=== PATIENT | male | born 1970 | race Caucasian/White ===

== ENCOUNTER 2016-12-23 08:51 | Emergency (ER) | payer OTHER, SELFPAY ==
--- NOTE | 2016-12-23 09:23 | C.PDOC ---
History Of Present Illness 46 y/o male presents to the ED with complaints of pain to left knee since 0700 this morning. Pt states he hit his knee against a table, pain is 9/10, nonradiating. Pt able to bear weight. He is concerned because pain is similar to previous right knee injury last year. Pt denies fever, chills, weakness, numbness or any other complaints. Time Seen by Provider: 12/23/16 09:05 Chief Complaint (Nursing): Lower Extremity Problem/Injury History Per: Patient History/Exam Limitations: no limitations Onset/Duration Of Symptoms: Hrs Current Symptoms Are (Timing): Still Present Severity: Severe Pain Scale Rating Of: 9 Recent travel outside of the [place]: No - Knee Description Of Injury: Struck Against Object Past Medical History Reviewed: Historical Data, Nursing Documentation, Vital Signs Vital Signs: Last Vital Signs Temp 97.9 F 12/23/16 09:14 Pulse 61 12/23/16 09:14 Resp 20 12/23/16 09:14 BP 113/71 12/23/16 09:14 Pulse Ox 95 12/23/16 09:14 Family History: States: Unknown Family Hx - Social History Hx Tobacco Use: No Hx Alcohol Use: No Hx Substance Use: No - Immunization History Hx Tetanus Toxoid Vaccination: No Hx Influenza Vaccination: No Hx Pneumococcal Vaccination: No Review Of Systems Except As Marked, All Systems Reviewed And Found Negative. Constitutional: Negative for: Fever, Chills Musculoskeletal: Positive for: Other (left knee pain) Neurological: Negative for: Weakness, Numbness Physical Exam - Physical Exam Appears: Non-toxic, No Acute Distress Skin: Warm, Dry, No Rash Extremity: Normal ROM, Capillary Refill (<2 seconds), No Deformity, Other (left knee slightly warm to touch, small bruise to anterior patella, mild swelling; no laxity or ballottment) Pulses: Left Dorsalis Pedis: Normal Neurological/Psych: Oriented x3, Normal Speech, Normal Motor, Normal Sensation ED Course And Treatment Progress Note: Plan: XR left knee, pain medication, ice Disposition Counseled Patient/Family Regarding: Studies Performed, Diagnosis, Need For Followup, Rx Given - Disposition Referrals: [facility] [Outside] Disposition: HOME/ ROUTINE Disposition Time: 10:47 Condition: STABLE Prescriptions: Naproxen [Naprosyn] 1 tab PO BID PRN #25 tab PRN Reason: Pain Instructions: Contusion in Adults (DC) Forms: Gen Discharge Inst Tuvaluan - Clinical Impression Clinical Impression: Knee contusion - Scribe Statement The provider has reviewed the documentation as recorded by the Scribe Aamir Pollard Provider Attestation: All medical record entries made by the Scribe were at my direction and personally dictated by me. I have reviewed the chart and agree that the record accurately reflects my personal performance of the history, physical exam, medical decision making, and the department course for this patient. I have also personally directed, reviewed, and agree with the discharge instructions and disposition.
[2016-12-23 09:24] VITALS: TEMP 97.9
[2016-12-23 11:03] VITALS: BP 117/68; PULSE 62; RESP 14; O2SAT 96
--- NOTE | 2016-12-23 11:56 | RAD ---
PROCEDURE: Left Knee Radiographs. HISTORY: Pain. COMPARISON: None. FINDINGS: BONES: Normal. No fracture. JOINTS: Normal. No osteoarthritis. JOINT EFFUSION: None. OTHER FINDINGS: None. IMPRESSION: Normal radiographs of the left knee.
== END 2016-12-23 11:03 | disposition home or self-care (01) ==
LOC: C.ER 08:51
DX: S80.02XA Contusion of left knee, initial encounter (principal); W22.03XA Walked into furniture, initial encounter

== ENCOUNTER 2017-01-13 12:30 | Emergency (ER) | payer OTHER ==
[2017-01-13 12:38] VITALS: BP 109/70; PULSE 66; RESP 18; TEMP 98.6; O2SAT 99; BMI 30.2
--- NOTE | 2017-01-13 12:45 | C.PDOC ---
History Of Present Illness Patient is a 46 y/o M with hx of knee pain, presenting requesting MRI. Patient was seen in the ED on 12/23 after he hit his knee against a table. He was referred to follow-up with [facility] after he had negative xrays. He reports that he has been unable to follow-up so presented to ED today for MRI. He denies new trauma. Time Seen by Provider: 01/13/17 12:44 Chief Complaint (Nursing): Lower Extremity Problem/Injury Past Medical History Vital Signs: Last Vital Signs Temp 98.6 F 01/13/17 12:38 Pulse 66 01/13/17 12:38 Resp 18 01/13/17 12:38 BP 109/70 01/13/17 12:38 Pulse Ox 99 01/13/17 12:55 Family History: States: Unknown Family Hx - Social History Hx Tobacco Use: No Hx Alcohol Use: No Hx Substance Use: No - Immunization History Hx Tetanus Toxoid Vaccination: No Hx Influenza Vaccination: No Hx Pneumococcal Vaccination: No Review Of Systems Constitutional: Negative for: Fever, Chills Cardiovascular: Negative for: Chest Pain Respiratory: Negative for: Shortness of Breath Gastrointestinal: Negative for: Vomiting, Abdominal Pain, Diarrhea Genitourinary: Negative for: Dysuria Musculoskeletal: Positive for: Other (knee pain) Skin: Negative for: Rash Neurological: Negative for: Weakness, Numbness Physical Exam - Physical Exam Appears: Well, Non-toxic, No Acute Distress Skin: Normal Color, Warm, Dry Head: Atraumatic, Normacephalic Eye(s): bilateral: Normal Inspection, PERRL, EOMI Extremity: Normal ROM, No Tenderness, No Pedal Edema, No Calf Tenderness, No Deformity, No Swelling, Other (normal ROM at L knee. Ambulates with steady gait) ED Course And Treatment O2 Sat by Pulse Oximetry: 99 Medical Decision Making Medical Decision Making: Patient requesting MRI L knee for evaluation of injury from 12/24. Called clinic and they report that they will evaluate patient today and refer him to orthopedics and/or get further imaging as needed. Disposition - Disposition Disposition: HOME/ ROUTINE Disposition Time: 12:55 Condition: GOOD Additional Instructions: You have had negative knee xray. You need to follow-up with clinic for further evaluation. Go directly to clinic now to make appt. Instructions: Knee Pain (ED) Print Language: KHMER - Clinical Impression Clinical Impression: Knee pain, left
== END 2017-01-13 13:04 | disposition home or self-care (01) ==
LOC: C.ER 12:30
DX: M25.562 Pain in left knee (principal)

== ENCOUNTER 2018-04-23 17:32 | Emergency (ER) | payer OTHER ==
[2018-04-23 17:32] VITALS: BMI 30.6
[2018-04-23 17:51] VITALS: BP 91/60; PULSE 69; RESP 18; TEMP 98.2; O2SAT 96
--- NOTE | 2018-04-23 18:27 | C.PDOC ---
History Of Present Illness 47 y/o male presents to the ER for evaluation of left sided facial swelling which has gradually developed since the morning. Patient reports associated left upper toothache and left earache for past few days. Patient denies known trauma, injury, recent illness, fever, chills, headache, dizziness, ear discharge, drooling, dysphagia, dyspnea, trismus, recent dental work, neck pain, cough, CP, denies any other active complaints. Ambulate to Ed for evaluation, not in any apparent distress. Time Seen by Provider: 04/23/18 18:09 Chief Complaint (Nursing): Abnormal Skin Integrity History Per: Patient History/Exam Limitations: no limitations Onset/Duration Of Symptoms: Hrs Current Symptoms Are (Timing): Still Present Severity: Moderate Past Medical History Reviewed: Historical Data, Nursing Documentation, Vital Signs Vital Signs: Last Vital Signs Temp 98.2 F 04/23/18 17:48 Pulse 69 04/23/18 17:48 Resp 18 04/23/18 17:48 BP 91/60 L 04/23/18 17:48 Pulse Ox 96 04/23/18 17:48 - Medical History PMH: No Chronic Diseases Surgical History: No Surg Hx Family History: States: No Known Family Hx - Social History Hx Tobacco Use: No Hx Alcohol Use: No Hx Substance Use: No - Immunization History Hx Tetanus Toxoid Vaccination: No Hx Influenza Vaccination: No Hx Pneumococcal Vaccination: No Review Of Systems Except As Marked, All Systems Reviewed And Found Negative. Constitutional: Positive for: Other (left-sided facial swelling). Negative for: Fever, Chills ENT: Positive for: Ear Pain (left ear), Mouth Pain Physical Exam - Physical Exam Appears: Well, Non-toxic, No Acute Distress Skin: Normal Color, Warm, Dry, No Rash, No Ecchymosis Head: Normacephalic Eye(s): bilateral: PERRL Ear(s): Bilateral: Normal Nose: No Flaring, No Discharge, Other (left paranasal edema and mild tenderness, no erythema.) Oral Mucosa: Moist, No Drooling, No Trismus Tongue: No Swelling Lips: No Swelling Teeth: Tender To Palpation (#9 tooth), Other (abscess to #9 tooth, early. NO flactulance) Gingiva: Erythema (#8,9), Tender (#8,9) Throat: No Erythema, No Exudate, No Drooling Neck: Trachea Midline, Supple Cardiovascular: Rhythm Regular, No Murmur, No JVD Respiratory: No Decreased Breath Sounds, No Accessory Muscle Use, No Rales, No Rhonchi, No Stridor, No Wheezing Neurological/Psych: Oriented x3, Normal Speech ED Course And Treatment O2 Sat by Pulse Oximetry: 96 (RA) Pulse Ox Interpretation: Normal (") Progress Note: On re-evaluation, pt is Afebrile, hemodynamicaly stable. Non- toxic, tolerate Po well in Ed. PulseOx 96% RA. neck: Supple, (-) meningeal sign. ENT: exam c/w #9 tooth abscess, early, no flactualnce, No drooling, no trismus. Lungs: CTA B/L, BS equal B/L. Neurologicaly intact. Pt advised. ref. to f/u with Dentist, ENT in 2-3 days for re-eavl. return if any new changes. Disposition Counseled Patient/Family Regarding: Diagnosis, Need For Followup, Rx Given - Disposition Referrals: [facility] [Provider Group] [facility] [Provider Group] [facility] [Outside] Joselito Juarez MD [Staff Provider] - Disposition: HOME/ ROUTINE Disposition Time: 18:26 Condition: STABLE Additional Instructions: Encourage fluids Warm salty water tooth baths 2-3 times daily for 5 minutes Take medication as prescribed Follow up with Dentist in 2-3 days for re-evaluation. return to ED if any worsening or new changes Prescriptions: Clindamycin [Cleocin] 300 mg PO Q6 #28 cap Prednisone [Deltasone] 20 mg PO DAILY #3 tablet traMADol [Ultram] 50 mg PO TID #7 tab Instructions: Tooth Abscess (DC), Dental Pain (DC) Forms: [employer] (Mohawk) Print Language: SAMOAN - Clinical Impression Clinical Impression: Tooth abscess - PA / SHERIFF / Resident Statement MD/DO has reviewed & agrees with the documentation as recorded. - Scribe Statement The provider has reviewed the documentation as recorded by the Saraibkeny Rodrigez Provider Attestation All medical record entries made by the Scribe were at my direction and perso kimmy dictated by me. I have reviewed the chart and agree that the record accurately reflects my personal performance of the history, physical exam, medical decision making, and the department course for this patient. I have also personally directed, reviewed, and agree with the discharge instructions and disposition.
== END 2018-04-23 18:50 | disposition home or self-care (01) ==
LOC: C.ER 17:32
DX: K04.7 Periapical abscess without sinus (principal)

== ENCOUNTER 2018-08-17 19:31 | Emergency (ER) | payer OTHER ==
[2018-08-17 19:31] VITALS: BMI 30.6
[2018-08-17 19:40] VITALS: BP 110/71; PULSE 63; RESP 20; TEMP 98; O2SAT 96
--- NOTE | 2018-08-17 20:41 | C.PDOC ---
History Of Present Illness 48 year old male presents to the ER stating he feels like he has had swelling to his right lower eyelid and below eye intermittently for the past few days with pain to the right nasal area. Denies cough, URI, or eye discharge. Time Seen by Provider: 08/17/18 20:09 Chief Complaint (Nursing): Eye Problem History Per: Patient History/Exam Limitations: no limitations Onset/Duration Of Symptoms: Days, Intermittent Episodes Current Symptoms Are (Timing): Still Present Injury To Eye?: No Wears Contact Lens?: No Associated Symptoms: Swelling Recent travel outside of the [place]: No Past Medical History Reviewed: Historical Data, Nursing Documentation, Vital Signs Vital Signs: Last Vital Signs Temp 98 F 08/17/18 19:39 Pulse 63 08/17/18 19:39 Resp 20 08/17/18 19:39 BP 110/71 08/17/18 19:39 Pulse Ox 96 08/17/18 19:39 Family History: States: Unknown Family Hx - Social History Hx Tobacco Use: No Hx Alcohol Use: No Hx Substance Use: No - Immunization History Hx Tetanus Toxoid Vaccination: No Hx Influenza Vaccination: No Hx Pneumococcal Vaccination: No Review Of Systems Constitutional: Negative for: Fever, Chills Eyes: Positive for: Other (Swelling, no discharge) ENT: Positive for: Nose Pain (Right sided). Negative for: Nose Discharge, Nose Congestion, Throat Pain Respiratory: Negative for: Cough Physical Exam - Physical Exam Appears: Non-toxic Skin: Normal Color, Warm, Dry Head: Atraumatic, Normacephalic Eye(s): bilateral: Normal Inspection (No periorbital swelling, No discharge, No conjunctival injection, 20/25 visual acuity), PERRL, EOMI Ear(s): Bilateral: Normal Nose: Normal Oral Mucosa: Moist Neurological/Psych: Oriented x3, Normal Speech ED Course And Treatment O2 Sat by Pulse Oximetry: 96 (Room air) Pulse Ox Interpretation: Normal Progress Note: Patient is resting comfortably in no acute distress, vitals are stable, will discharge home with Rx and instructions to follow up with PMD. Disposition Counseled Patient/Family Regarding: Diagnosis, Need For Followup, Rx Given - Disposition Referrals: Manjit Bolivar [Staff Provider] - Disposition: HOME/ ROUTINE Disposition Time: 20:37 Condition: STABLE Additional Instructions: Please follow up in clinic or eye Take medications as directed Return to ER if worse Prescriptions: Cetirizine HCl [Zyrtec] 10 mg PO DAILY #14 capsule Instructions: Seasonal Allergies (DC) Forms: [employer] (Polish) Print Language: SOUTH SUDANESE - Clinical Impression Clinical Impression: Allergic rhinitis - PA / ASSISTANT ACCOUNT MANAGER / Resident Statement MD/DO has reviewed & agrees with the documentation as recorded. - Scribe Statement The provider has reviewed the documentation as recorded by the Scribkeny Alejandro All medical record entries made by the Saraibkeny were at my direction and personally dictated by me. I have reviewed the chart and agree that the record accurately reflects my personal performance of the history, physical exam, medical decision making, and the department course for this patient. I have also personally directed, reviewed, and agree with the discharge instructions and disposition.
== END 2018-08-17 20:48 | disposition home or self-care (01) ==
LOC: C.ER 19:31
DX: J30.9 Allergic rhinitis, unspecified (principal)